=== PATIENT | male | born 1990 | race Caucasian/White ===

== ENCOUNTER 2018-05-27 08:52 | Day surgery (SDC) | payer OTHER ==
[~2018-05-27 08:52] MED LIST: NEOSTIGMINE 3 MG/3 ML SYRINGE
[2018-05-27] MEDS ORDERED: ROCURONIUM 50 MG INJ (10:05)
[2018-05-27] MEDS ORDERED: MIDAZOLAM 1 MG/ML 2 ML INJ ×2 (10:05→10:48)
[2018-05-27] MEDS ORDERED: LIDOCAINE 2% (SDV) 5 ML INJ (10:05)
[2018-05-27] MEDS ORDERED: CEFAZOLIN 1 GM INJ (10:05)
[2018-05-27] MEDS ORDERED: PROPOFOL 40 ML (10:05)
[2018-05-27] MEDS ORDERED: ACETAMINOPHEN 1000MG/100ML IV 100 ML (10:06)
[2018-05-27] MEDS ORDERED: ONDANSETRON 4 MG INJ (10:06)
[2018-05-27] MEDS ORDERED: FENTAnyl 50 MCG/ML VIAL (10:06)
[2018-05-27] MEDS ORDERED: FAMOTIDINE 20 MG INJ (10:06)
[2018-05-27] MEDS ORDERED: DEXAMETHASONE 4 MG/ML 1 ML INJ (10:06)
[2018-05-27] MEDS ORDERED: MAGNESIUM SULFATE 1 GM/D5W 100 ML (10:34)
[2018-05-27] MEDS ORDERED: KETAMINE (50 MG/ML) 10 ML VIAL (10:34)
[2018-05-27] MEDS ORDERED: GLYCOPYRROLATE 0.4 MG INJ (10:50)
[2018-05-27] MEDS: LIDOCAINE 1%/EPI 30 ML INJ (11:07)
[2018-05-27] MEDS: COCAINE 4% 4 ML TOP (11:07)
[2018-05-27] MEDS: BACITRACIN/POLYMYXIN 28.35 GM OINT TOP (11:11)
[2018-05-27] MEDS ORDERED: traMADol 50 MG TAB (12:28)
[2018-05-27] MEDS: traMADol 50 MG TAB PO (12:29)
[2018-05-27] MEDS ORDERED: DIPHENHYDRAMINE 50 MG INJ IV (12:30)
[2018-05-27] MEDS ORDERED: ALBUTEROL 0.083% (NEB) 2.5 MG/3 ML AMP HHN (12:30)
[2018-05-27] MEDS: ONDANSETRON 4 MG INJ IV (12:32)
== END 2018-05-27 15:10 | disposition home or self-care (01) ==
LOC: SDS 08:52
DX: J34.2 Deviated nasal septum (principal); J34.3 Hypertrophy of nasal turbinates; J32.9 Chronic sinusitis, unspecified
CPT/HCPCS: 30140; 87070; 88300